=== PATIENT | male | born 1980 | race Caucasian/White ===

== ENCOUNTER 2021-04-07 12:27 | Outpatient (CLI) | payer OTHER ==
--- NOTE | 2021-04-07 20:53 | MRI Report ---
PROCEDURE: Knee LT W/O INDICATIONS: MONOARTHRITIS LEFT KNEE TECHNIQUE: Noncontrast sagittal PD fast spin echo and T2 fast spin echo with fat saturation, sagittal 3-D spoile d GE with fat saturation; coronal T1 spin echo and PD fast spin echo with fat saturation, and axial P D fast spin echo with fat saturation through the knee. COMPARISON: None. FINDINGS: Image quality: Excellent. Anterior cruciate ligament: Intact. Posterior cruciate ligament: Intact. Medial collateral ligament: Intact. Lateral collateral ligament: Intact. Medial meniscus: Intermediate intrasubstance signal is seen in the posterior horn and body of the me dial meniscus that approaches and may communicate with the middle third of the tibial articular surfa ce. Lateral meniscus: The lateral meniscus is intact. Medial and lateral tendons: The semimembranosus tendon insertions appear intact. Visualized portion s of the pes anserinus tendons appear normal. The popliteus tendon appears intact. Iliotibial band appears normal. Anterior structures: The quadriceps and patellar tendons appear intact. Patellar alignment is mary l. No femoral trochlear dysplasia or ventral trochlear prominence. No edema in the infrapatellar fa t pad. Bones: No acute trabecular bone injury or fracture. Mild edema within the medial femoral condyle and medial tibial plateau may be secondary to a resolving contusion or reactive to the medial meniscal t ear. Medial femorotibial cartilage: Mild grade 2 cartilage thinning and irregularity is seen in the weigh tbearing portion of the medial femorotibial compartment. Lateral femorotibial cartilage: Intact. Patellofemoral cartilage: Intact. Soft tissues: There is a physiologic amount of joint fluid. A small lobular medial popliteal cyst i s seen with mild surrounding edema that is suspicious for prior cyst rupture. A lobular ganglion cyst is seen adjacent to the origin of the medial head of the posterior knee mass muscle measuring approx imately 13 x 10 x 10 mm. The musculature surrounding the knee is normal in bulk. IMPRESSION: 1.Suspected horizontal oblique tearing of the posterior horn and body of the medial meniscus extendin g to the middle third of the articular surface, although a meniscal contusion or intrasubstance degen eration could have a similar appearance. 2.Mild osseous edema at the medial aspect of the medial femoral condyle and the medial tibial plateau may be reactive to an adjacent meniscal tear versus secondary to a resolving direct contusion. 3.Intact cruciate and collateral ligaments. 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 5.Small medial popliteal cyst with signs of prior cyst rupture. Small ganglion cyst adjacent to the o rigin of the medial head of gastrocnemius muscle. Reviewed by: Yazan Moura MD on 04/07/2021 8:51 PM PST Approved by: Yazan Moura MD on 04/07/2021 8:51 PM PST Station ID: [id number]
== END 2021-04-07 12:28 | disposition home or self-care (01) ==
LOC: DI 12:27
DX: M94.262 Chondromalacia, left knee (principal); M66.0 Rupture of popliteal cyst; M67.462 Ganglion, left knee